=== PATIENT | female | born 1990 | race Hispanic/Latino ===

== ENCOUNTER 2019-10-09 15:06 | Emergency (ER) | payer BC ==
[~2019-10-09] VITALS: Ht 165.1 cm; Wt 117.9 kg
--- NOTE | 2019-10-09 16:16 | Emergency Department Note ---
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 Pt states that she when she stood up on two occasions earlier today, that "blood gushed and ran down her leg," and this worried her. She states that she has had "heavy periods, but nothing like this." The bleeding has slowed this afternoon, and she denies any significant abdominal pain. She admits to mild, lower abdominal "cramping" which is typical during her periods. She started her period 2-3 days ago. She denies dysuria, N/V/D/F/C. Historian: Patient Arrival Mode: Car Manager Inventory Required: No Onset (how long ago): hour(s) (6) Location: vaginal bleeding Quality: see HPI Radiation: non-radiation Severity: moderate Onset quality: sudden Duration (how long): hour(s) (6) Timing of current episode: sporadic Progression: resolved Chronicity: new Relieving factors: none Exacerbating factors: none Associated symptoms: denies other symptoms Past Medical/Family History Physician Review I have reviewed the patient's past medical and family history. Any updates have been documented here. Past Medical History Recent Fever: No Clinical Suspicion of Infectio: No New/Unexplained Change in Ment: No Past Medical History: None Past Surgical History: None Social History Smoking Cessation: Current every day smoker (< 1/2 ppd) Any Illegal Drug Use: No TB Exposure/Symptoms: No Physically hurt or threatened: No Family History Family history of heart diseas: No Other Last Tetanus: UNKNOWN Any Pre-Existing Lines (PICC,: No Is patient up to date on immun: No Review of Systems Review of Systems Constitutional: no symptoms, other (no dizziness, weakness, or near syncope) EENTM: no symptoms Cardiovascular: no symptoms Gastrointestinal: no symptoms Genitourinary: no symptoms Musculoskeletal: no symptoms Neurological: no symptoms Psychological: no symptoms Hematological/Lymphatic: no symptoms Review of other systems All other systems reviewed and negative. Physical Exam Related Data Allergies: Coded Allergies: No Known Allergies (Unverified , 10/09/19) Triage Vital Signs Vital Signs Date Time Temp Pulse Resp B/P (MAP) Pulse Ox O2 Delivery O2 Flow Rate FiO2 10/09/19 15:12 98.2 85 18 129/78 99 Vital signs reviewed: Yes Physical Exam CONSTITUTIONAL Constitutional: well-developed, well-nourished, obese HENT HENT: normocephalic, atraumatic, oropharynx clear/moist, nose normal HENT L/R: left ext ear normal, right ext ear normal EYES Eyes: PERRL, conjunctivae normal NECK Neck: ROM normal PULMONARY Pulmonary: effort normal, breath sounds normal CARDIOVASCULAR Cardiovascular: regular rhythm, heart sounds normal, capillary refill normal, normal rate GASTROINTESTINAL Abdominal: soft, nontender, bowel sounds normal, other (mild suprapubic ttp, w ithout rebound or guarding) GENITOURINARY Genitourinary: exam deferred SKIN Skin: warm, dry MUSCULOSKELETAL NEUROLOGICAL Neurological: alert, oriented x 3, no gross motor or sensory deficits PSYCHOLOGICAL Results Laboratory Laboratory comments CBC - H/H = 12.7/38.9, with last episode of heavy vaginal bleeding @ 6 hours QUALITY DIRECTOR. UPT - negative Critical Care Time Subsequent provider I assumed direction of critical care for this patient from another provider of my specialty. Assessment & Plan Assessment & Plan Final Impression: (1) Menorrhagia with irregular cycle Assessment & Plan - Pt with negative test, history of irregular and heavy menses who presents with a heavier than usual period, with minimal pain. - VSS, no significant anemia, no dizziness, weakness or near syncope - bleeding has currently decreased, with heavier bleeding occurring earlier, with standing. - pt to contact poultry boner for follow-up. Pt voiced understanding of the plan. Depart Disposition: HOME, SELF-CARE Last Vital Signs Date Time Temp Pulse Resp B/P (MAP) Pulse Ox O2 Delivery O2 Flow Rate FiO2 10/09/19 15:12 98.2 85 18 129/78 99 RORY MENCHACA MD October 09, 2019 16:16
[2019-10-09 16:57] VITALS: BP 106/62
== END 2019-10-09 16:58 | disposition home or self-care (01) ==
LOC: FSED 15:06
DX: N92.0 Excessive and frequent menstruation with regular cycle (principal); R10.30 Lower abdominal pain, unspecified; F17.210 Nicotine dependence, cigarettes, uncomplicated
CPT/HCPCS: 81003; 81025; 85025; 99283